=== PATIENT | female | born 2000 | race Hispanic/Latino ===

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

== ENCOUNTER 2022-06-25 10:50 | Emergency (ER) | payer SELFPAY ==
[~2022-06-25] VITALS: Ht 162.6 cm; Wt 60.8 kg
[2022-06-25] MEDS ORDERED: CEPHALEXIN500 MG PO ×2 (11:12→11:15)
[2022-06-25] MEDS ORDERED: MUPIROCIN22 GM TOP ×2 (11:12→11:15)
== END 2022-06-25 11:18 | disposition home or self-care (01) ==
LOC: ER 10:53
DX: L08.9 Local infection of the skin and subcutaneous tissue, unspecified (principal); S80.862A Insect bite (nonvenomous), left lower leg, initial encounter; S80.861A Insect bite (nonvenomous), right lower leg, initial encounter; W57.XXXA Bitten or stung by nonvenomous insect and other nonvenomous arthropods, initial encounter; F41.9 Anxiety disorder, unspecified; F17.210 Nicotine dependence, cigarettes, uncomplicated
CPT/HCPCS: 99282